=== PATIENT | male | born 1995 | race Caucasian/White ===

== ENCOUNTER 2017-09-20 20:59 | Emergency (ER) | payer BC, OTHER ==
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
[2017-09-20 21:26] LABS: PLATELET COUNT 318 10^3/uL (150-400)
[2017-09-20] MEDS ORDERED: OLANZapine 5 MG TAB ONE (22:53)
[2017-09-20] MEDS ORDERED: OLANZapine DISINTEGR 5 MG TAB ONE (22:54)
[2017-09-20] MEDS ORDERED: OLANZapine DISINTEGR 5 MG TAB PO ONE (22:57)
[2017-09-21 08:33] VITALS: BP 109/69; PULSE 58; RESP 16; TEMP 98.2; O2SAT 98
== END 2017-09-21 09:52 ==
LOC: EDUNIT#
DX: F30.9 Manic episode, unspecified (principal); F28 Other psychotic disorder not due to a substance or known physiological condition
CPT/HCPCS: 80305; G0480

== ENCOUNTER 2019-01-28 22:11 | Emergency (ER) | payer OTHER ==
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
[2019-01-28 23:02] LABS: PLATELET COUNT 245 10^3/uL (150-400)
[2019-01-29] MEDS ORDERED: OLANZapine 5 MG TAB PO ONE (01:41)
[2019-01-29] MEDS ORDERED: OLANZapine DISINTEGR 10 MG TAB ONE (01:43)
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
--- NOTE | 2019-01-29 06:58 | ASMTTCLDSP ---
TLC Discharge Disposition Disposition: Answers: Transfer Disposition Notes: Notes: Transferred to [facility] at request of parents. Accepted under Dr. Shaun Hazel. Discharge Concerns/Recommendations: Notes: In consultation with [facility] ED physician, Augustus Schmidt MD and on-call psychiatrist, Papo Carter MD, both concurred that pt appears to meet 27-65 criteria requiring psychiatric hospitalization as pt appears to be at risk of harm to self/others due to a mental illness condition. Pt was read the Patient Rights and Responsibilities Statement on 01/29/19 at 0600, original placed on chart, and was given photocopy of Rights. Pt declined to sign the Patient Rights. Was patient given the Answers: Not applicable Inpatient Behavioral Health Prohibited Belongings List while in the ED? Type of Hold: Answers: M1/72-hour Hold Hold initiated by: Answers: Police For Transfers, Accepting [facility] Facility: For Transfers, Accepting Shaun Hazel MD Psychiatrist: For Transfers, Reason Parent request. Patient is Being Transferred: Date Signed: 01/29/2019 06:57 AM Electronically Signed By:Valentin Alonzo
[2019-01-29 07:48] VITALS: BP 136/89
== END 2019-01-29 08:49 | disposition short-term general hospital (02) ==
PROC: GZ11ZZZ Psychological Tests, Personality and Behavioral (ICD-10-PCS; principal; 2019-01-28)
DX: F32.9 Major depressive disorder, single episode, unspecified (principal)
CPT/HCPCS: 80305; G0480